=== PATIENT | male | born 1940 | race Caucasian/White ===

== ENCOUNTER 2018-10-26 10:38 | Emergency (ER) | payer OTHER ==
[2018-10-26 11:32] LABS: Bilirubin Negative (Negative); Blood, Urine Small (Negative); Clarity Cloudy (Clear); Glucose, Urine (Dipstick) Negative (Negative); Leukocyte Large (Negative); Nitrite Positive (Negative); Protein, Urine (Dipstick) Negative (Neg-Trace); Urobilinogen 0.2 mg/dL (0.2-1.0); pH, Urine 5.5 (5.0-9.0)
[2018-10-26 11:38] LABS: Bacteria/HPF 3+ HPF (None Seen); Hyaline Casts/LPF NONE SEEN LPF (0-3 Hyaline); Squamous Epithelial 0-3 HPF (0-3); WBC/HPF 21-50 HPF (0-3)
[2018-10-26 12:02] LABS: Anion Gap 13 mmol/L (10-20); BUN (Urea Nitrogen) 14 mg/dL (8.4-25.7); Calc. Creatinine Clearance 0 mL/min (70-130); Calcium 9.6 mg/dL (7.8-10.44); Carbon Dioxide 21 mmol/L (23-31); Chloride 108 mmol/L (98-107); Estimated GFR-MDRD 86; Glucose 96 mg/dL (83-110); Potassium 3.9 mmol/L (3.5-5.1); Sodium 138 mmol/L (136-145)
--- NOTE | 2018-10-26 12:22 | CT ---
ABDOMEN AND PELVIC CT SCAN WITHOUT IV CONTRAST: History: 78-year-old male with history of difficulty urinating and pain and burning. FINDINGS: Three vessel coronary artery calcific disease. Small left lower lobe posterior pleural based granulom a. Approximately 0.2 cm subpleural nodule in the right middle lobe. Consider one year follow up chest CT scan for follow up. Small hiatal hernia. The liver, gallbladder, pancreas, and spleen are unremar kable. There is an approximately 1 cm diameter nodular area involving the right adrenal gland, nonspe cific. This does not have attenuation coefficient findings on noncontrast imaging that would definite ly represent an adenoma. There are tiny nonobstructing bilateral renal calculi. There are left renal cysts including numerous parapelvic cysts as well as small cortical cyst. No evidence for acute ob struction. Normal appearing appendix. Fairly extensive colonic diverticulosis without acute diverticu litis. Moderate bilateral fat containing inguinal hernias. No abscess, adenopathy, or abnormal fluid collection within the abdomen or pelvis. Lumbar spine multilevel disc disease. IMPRESSION: Tiny nonobstructing bilateral renal calculi. No evidence for acute obstruction. Bilateral fat cont aining inguinal hernias and hiatal hernia. Colonic diverticulosis without acute diverticulitis. Appro ximately 1 cm diameter indeterminate nodule right adrenal gland. Left renal cyst including small ruth ical cyst and parapelvic cysts. 0.2 cm diameter right middle lobe subpleural nodule, consider one yea r follow up chest CT scan. No CT evidence for acute appendicitis or other acute process. POS: [facility]
== END 2018-10-26 12:48 | disposition home or self-care (01) ==
LOC: SCSER 10:38
DX: N20.0 Calculus of kidney (principal); N39.0 Urinary tract infection, site not specified; Z87.891 Personal history of nicotine dependence; Z87.442 Personal history of urinary calculi
CPT/HCPCS: 74176; 80048; 81003; 81015; 87077; 87086; 87186